=== PATIENT | male | born 1955 | race Caucasian/White ===

== ENCOUNTER 2016-12-06 11:42 | Emergency (ER) | payer SELFPAY ==
[~2016-12-06] VITALS: Ht 175.3 cm; Wt 86.0 kg
[~2016-12-06 11:42] MED LIST: DIAB1.25; GLUCTAB; HTN MED
[2016-12-06 11:53] VITALS: BP 198/80; PULSE 103; RESP 16; TEMP 98.7; O2SAT 97
[2016-12-06] MEDS ORDERED: HUMALOG SQ (12:13)
[2016-12-06] MEDS ORDERED: INSU1INJ5 SQ (12:13)
[2016-12-06] MEDS ORDERED: UMEC1AER INH (12:13)
[2016-12-06] MEDS ORDERED: LIPI20TA PO (12:13)
[2016-12-06] MEDS ORDERED: AMLO10 PO (12:13)
[2016-12-06] MEDS ORDERED: SPIR25TA PO (12:13)
[2016-12-06] MEDS ORDERED: VARE1PAK3 PO (12:13)
[2016-12-06] MEDS ORDERED: THEO300T4 PO (12:13)
[2016-12-06] MEDS ORDERED: VENL75XR PO (12:13)
[2016-12-06] MEDS ORDERED: LIPI40TA PO (12:13)
[2016-12-06] MEDS ORDERED: LISI-515 PO (12:13)
[2016-12-06] MEDS ORDERED: THEO200T4 PO (12:15)
[2016-12-06] MEDS ORDERED: RESP: ALBUTEROL 2.5 MG/IPRATROPIUM 0.5 MG NEB (SCH) NEB ONE (12:15)
[2016-12-06 12:33] LABS: AUTOMATED NEUTROPHIL # 8.8 TH/MM3 (1.8-7.7); BASOPHIL # 0.1 TH/MM3 (0-0.2); BASOPHIL % 0.5 % (0.0-2.0); EOSINOPHIL # 0.6 TH/MM3 (0-0.4); EOSINOPHIL % 4.4 % (0.0-4.0); HEMO FLAGS DIFF FINAL; LYMPH % 25.9 % (9.0-44.0); LYMPHOCYTE # 3.6 TH/MM3 (1.0-4.8); MEAN CORPUSCULAR HEMOGLOBIN 30.2 PG (27.0-34.0); MEAN CORPUSCULAR HGB CONC 34.3 % (32.0-36.0); MONO % 6.3 % (0.0-8.0); NEUT % 62.9 % (16.0-70.0); PLATELET COUNT 447 TH/MM3 (150-450); RED BLOOD COUNT 3.97 MIL/MM3 (4.50-5.90); RED CELL DISTRIBUTION WIDTH 13.5 % (11.6-17.2)
--- NOTE | 2016-12-06 12:33 | PD ---
HPI Chief Complaint: Chest Pain Time Seen by Provider: 12:07 Travel History International Travel<30 days: No Contact w/Intl Traveler<30days: No Traveled to known affect area: No History of Present Illness HPI This 61-year-old male is complaining of chest pain. He says he been having left lower lateral chest pain off and on for the past week or so. The pain is aggravated by deep breathing and cough. He generally lasts a few seconds and is very sharp is also having some dull or pain in the left upper quadrant of the stomach. He has a history of diabetes. He smokes cigarettes. He has been having some pain in both hips for some time. The pain is aggravated by walking PFSH Past Medical History Blood Disorders: No Anxiety: Yes Depression: Yes Cancer: No Cardiovascular Problems: Yes (htn) High Cholesterol: Yes COPD: Yes Diabetes: Yes Patient Takes Glucophage: No Diminished Hearing: No Endocrine: Yes Genitourinary: No Hypertension: Yes Immune Disorder: No Musculoskeletal: No Neurologic: No Psychiatric: Yes Reproductive: No Respiratory: Yes (copd) Myocardial Infarction: No Tetanus Vaccination: > 5 Years Influenza Vaccination: No Past Surgical History AICD: No Arteriovenous Shunt: No Insulin Pump: No Joint Replacement: No Pacemaker: No Other Surgery: Yes (pilonidal cyst) Social History Alcohol Use: Yes (6 pk-2 TIMES A WEEK) Tobacco Use: Yes Substance Use: No Allergies-Medications (Allergen,Severity, Reaction): Coded Allergies: No Known Allergies (Verified , 12/06/16) Reported Meds & Prescriptions Reported Meds & Active Scripts Active Reported Theophylline CR (Theophylline) 200 Mg Tab 150 Mg PO Q12H Anoro Ellipta Inh (Umeclidinium/Vilanterol) 62.5-25 Mcg/Act Aero 1 Puff INH DAILY Spironolactone 25 Mg Tab 25 Mg PO BIDPC Lipitor (Atorvastatin Calcium) 40 Mg Tab 30 Mg PO DAILY Lisinopril 20 Mg Tab 20 Mg PO HS Norvasc (Amlodipine Besylate) 10 Mg Tab 10 Mg PO DAILY Chantix Starting Month Job (Varenicline) 0.5 mg X 11 & 1 mg X 42 Pack 1 Tab PO DIRECTED Effexor XR 24 HR (Venlafaxine HCl) 75 Mg Cap 75 Mg PO DAILY Lipitor (Atorvastatin Calcium) 20 Mg Tab 20 Mg PO HS Theophylline CR (Theophylline) 300 Mg Tab 300 Mg PO DAILY Levemir Flextouch Pen Inj (Insulin Detemir) 300 unit/3 ML Pen 20 Units SQ BID Humalog Inj (Insulin Human Lispro) 1,000 Unit/10 Ml Vial 1-10 Units SQ ACHS Max dose at bedtime:( )units; sugars< 70,(0)units; sugars 150-199,(1)unit; sugars 200-249,(3)units; sugars 250-299,(5)units; sugars 300-349,(7)units; sugars more than 349,(9)units. Review of Systems General / Constitutional: No: Fever, Chills Eyes: No: Diploplia, Blurred Vision HENT: No: Headaches Cardiovascular: Positive: Chest Pain or Discomfort Respiratory: No: Cough, Shortness of Breath Gastrointestinal: No: Vomiting, Diarrhea Genitourinary: No: Urgency, Frequency Musculoskeletal: No: Myalgias Skin: No Rash Psychiatric: Positive: Depression, No: Anxiety Physical Exam Narrative GENERAL: Well-developed male SKIN: Warm and dry. HEAD: Atraumatic. Normocephalic. EYES: Pupils equal and round. No scleral icterus. No injection or drainage. ENT: No nasal bleeding or discharge. Mucous membranes pink and moist. NECK: Trachea midline. No JVD. CARDIOVASCULAR: Regular rate and rhythm. No murmur appreciated. RESPIRATORY: No accessory muscle use. There are scattered wheezes and rhonchi. Breath sounds equal bilaterally. GASTROINTESTINAL: Abdomen soft, non-tender, nondistended. Hepatic and splenic margins not palpable. MUSCULOSKELETAL: No obvious deformities. No clubbing. No cyanosis. No edema. NEUROLOGICAL: Awake and alert. No obvious cranial nerve deficits. Motor grossly within normal limits. Normal speech. PSYCHIATRIC: Appropriate mood and affect; insight and judgment normal. Data Data Last Documented VS Vital Signs Date Time Temp Pulse Resp B/P Pulse Ox O2 Delivery O2 Flow Rate FiO2 12/06/16 12:02 104 16 98 Room Air 12/06/16 11:53 98.7 198/80 Orders Electrocardiogram (12/06/16 12:15) Complete Blood Count With Diff (12/06/16 12:15) Basic Metabolic Panel (Bmp) (12/06/16 12:15) Troponin I (12/06/16 12:15) Chest, Single Ap (12/06/16 12:15) Albuterol-Ipratropium Neb (Duoneb Neb) (12/06/16 12:15) Hip, Uni(Ap&Lat) Wo Ap Pelvis (12/06/16 12:43) Hip, Uni(Ap&Lat) Wo Ap Pelvis (12/06/16 12:43) Labs Laboratory Tests Test 12/06/16 12:00 White Blood Count 14.0 TH/MM3 Red Blood Count 3.97 MIL/MM3 Hemoglobin 12.0 GM/DL Hematocrit 35.0 % Mean Corpuscular Volume 88.0 FL Mean Corpuscular Hemoglobin 30.2 PG Mean Corpuscular Hemoglobin 34.3 % Concent Red Cell Distribution Width 13.5 % Platelet Count 447 TH/MM3 Mean Platelet Volume 7.9 FL Neutrophils (%) (Auto) 62.9 % Lymphocytes (%) (Auto) 25.9 % Monocytes (%) (Auto) 6.3 % Eosinophils (%) (Auto) 4.4 % Basophils (%) (Auto) 0.5 % Neutrophils # (Auto) 8.8 TH/MM3 Lymphocytes # (Auto) 3.6 TH/MM3 Monocytes # (Auto) 0.9 TH/MM3 Eosinophils # (Auto) 0.6 TH/MM3 Basophils # (Auto) 0.1 TH/MM3 CBC Comment DIFF FINAL Differential Comment Sodium Level 144 MEQ/L Potassium Level 3.9 MEQ/L Chloride Level 110 MEQ/L Carbon Dioxide Level 25.4 MEQ/L Anion Gap 9 MEQ/L Blood Urea Nitrogen 35 MG/DL Creatinine 1.70 MG/DL Estimat Glomerular Filtration 41 ML/MIN Rate Random Glucose 199 MG/DL Calcium Level 8.6 MG/DL Troponin I LESS THAN 0.02 NG/ML [facility] Medical Decision Making Medical Screen Exam Complete: Yes Emergency Medical Condition: Yes Medical Record Reviewed: Yes Differential Diagnosis Differential includes coronary artery disease, pneumonia, chest wall pain. Hip arthritis Narrative Course X-ray of the hip does show some arthritis. Chest x-ray is negative. EKG sinus rhythm. Troponin is normal. Patient has been having prolonged pain with normal studies. His pain appears to be chest wall pain. Patient is requesting pain medication. He is diabetic with some renal insufficiency. I will prescribe Lortab Diagnosis Primary Impression: Chest wall pain Scripts Hydrocodone-Acetaminophen (Lortab)7.5-325 Mg Tab1 Tab PO Q4H PRN (PAIN) #30 TAB Ref 0 Prov:Roberto Ontiveros MD 12/06/16 Disposition: 01 DISCHARGE HOME Condition: Stable Roberto Ontiveros MD Dec 06, 2016 12:33
[2016-12-06 12:42] LABS: CHLORIDE 110 MEQ/L (98-107); POTASSIUM 3.9 MEQ/L (3.5-5.1); SODIUM (NA) 144 MEQ/L (136-145)
[2016-12-06 12:45] LABS: ANION GAP 9 MEQ/L (5-15); BICARBONATE 25.4 MEQ/L (21.0-32.0); BLOOD UREA NITROGEN 35 MG/DL (7-18)
[2016-12-06 12:48] LABS: GLOMERULAR FILTRATION RATE 41 ML/MIN (>89)
[2016-12-06 13:00] VITALS: BP 163/76; PULSE 90; RESP 16; O2SAT 98
--- NOTE | 2016-12-06 13:30 | RADHPO ---
EXAM DATE/TIME: 12/06/2016 12:47 [facility] COMPARISON: No previous studies available for comparison. INDICATIONS : Left side rib pain, no known injury. MEDICAL HISTORY : Chronic obstructive pulmonary disease. SURGICAL HISTORY : None. ENCOUNTER: Initial ACUITY: 1 week PAIN SCORE: 4/10 LOCATION: Left ribs FINDINGS: Portable AP view of the chest demonstrates a normal-sized cardiac silhouette. No effusion, consolidat ion, or pneumothorax is visualized. The bones and soft tissues demonstrate no acute abnormality. Ther e is a calcified granuloma in the left upper lobe. CONCLUSION: No acute cardiopulmonary abnormality is identified. No rib abnormality is identified. Daniele Thomson MD on December 06, 2016 at 13:27 Board Certified Radiologist. This report was verified electronically.
--- NOTE | 2016-12-06 13:31 | RADHPO ---
EXAM DATE/TIME: 12/06/2016 12:53 [facility] COMPARISON: No previous studies available for comparison. INDICATIONS : Right hip pain, no known injury. MEDICAL HISTORY : None. SURGICAL HISTORY : None. ENCOUNTER: Initial ACUITY: >1 year PAIN SCORE: 2/10 LOCATION: Right hip FINDINGS: AP and lateral views of the right hip joint demonstrate no fracture or dislocation. Mineralization is within normal limits. There is mild superior joint space narrowing and there are small acetabular os teophytes. Visualized pelvic bones demonstrate no acute finding. No soft tissue abnormality is identi fied. CONCLUSION: No acute right hip abnormality is identified. There is mild osteoarthritis. Daniele Thomson MD on December 06, 2016 at 13:29 Board Certified Radiologist. This report was verified electronically.
--- NOTE | 2016-12-06 13:32 | RADHPO ---
EXAM DATE/TIME: 12/06/2016 12:56 [facility] COMPARISON: No previous studies available for comparison. INDICATIONS : Left hip pain, no known injury. MEDICAL HISTORY : None. SURGICAL HISTORY : None. ENCOUNTER: Initial ACUITY: >1 year PAIN SCORE: 2/10 LOCATION: Left hip FINDINGS: AP and lateral views of the left hip demonstrate no fracture or dislocation. Mineralization is within normal limits and there our small acetabular osteophytes. No soft tissue abnormality or radiopaque f oreign body is identified. CONCLUSION: Mild left hip joint osteoarthritis. No acute finding is identified. Daniele Thomson MD on December 06, 2016 at 13:30 Board Certified Radiologist. This report was verified electronically.
[2016-12-06] MEDS ORDERED: HYDR-3534 PO (13:38)
[2016-12-06 14:30] VITALS: BP 167/74
--- NOTE | 2016-12-07 16:47 | EKG ---
Date Performed: 12/06/2016 Time Performed: 13:38:54 PTAGE: 61 years EKG: Sinus rhythm Septal T wave changes are nonspecific Borderline ECG PREVIOUS TRACING : 12/06/2016 11.54 Compared to prior tracing no significant change DOCTOR: Azeem Steve Interpretating Date/Time 12/07/2016 16:46:04
--- NOTE | 2016-12-07 16:54 | EKG ---
Date Performed: 12/06/2016 Time Performed: 11:54:16 PTAGE: 61 years EKG: Sinus rhythm Septal ST-T changes are nonspecific Borderline ECG PREVIOUS TRACING : 02/05/2007 17.22 Compared to prior tracing no significant change DOCTOR: Azeem Steve Interpretating Date/Time 12/07/2016 16:54:40
== END 2016-12-06 14:30 | disposition home or self-care (01) ==
LOC: PHEFT 11:42
DX: R07.89 Other chest pain (principal); E11.9 Type 2 diabetes mellitus without complications; Z72.0 Tobacco use; J44.9 Chronic obstructive pulmonary disease, unspecified; I10 Essential (primary) hypertension; N28.9 Disorder of kidney and ureter, unspecified; Z79.4 Long term (current) use of insulin
CPT/HCPCS: 71010; 73502; 80048; 84484; 85025; 93005; 94664